=== PATIENT | female | born 1990 | race Caucasian/White ===

== ENCOUNTER 2025-09-30 12:24 | Emergency (ER) | payer OTHER, SELFPAY ==
--- NOTE | 2025-09-30 12:32 | ED.URI ---
HPI - URI/Sore Throat General Chief Complaint: Upper Respiratory Infection Stated Complaint: COUGH/SORE THROAT/LOSING VOICE/SOB Time Seen by Provider: 09/30/25 12:45 Source: patient Mode of arrival: ambulatory Limitations: no limitations History of Present Illness HPI Narrative: is a 34 year old female patient presenting to the clinic today with c/o cough, sore throat, losing voice, and shortness of breath x 3 days. She denies any fevers, chills, body aches. States does have a little chest discomfort with coughing. Coughing is nonproductive at this time. MD elicited complaint: sore throat and nasal congestion Related Data Home Medications ?Medication ?Instructions ?Recorded ?Confirmed ?Last Taken ?Type clonazepam 0.5 mg tablet mg 09/30/25 Unknown History Allergies Allergy/AdvReac Type Severity Reaction Status Date / Time amoxicillin (From Augmentin) Allergy Severe Rash Verified 09/30/25 12:39 clavulanic acid (From Allergy Severe Rash Verified 09/30/25 12:39 Augmentin) Review of Systems Review of Systems: Pertinent positives per HPI. Patient denies any fever, chills, rash, headache, visual changes, dizziness, cough, shortness of breath, chest pain, palpitations, nausea, vomiting, diarrhea, constipation, abdominal pain, or any urinary issues. PMFSH Comments At the time of my signature, I reviewed and agree with the nursing past medical, surgical, social, and family history. There is no relevant family history pertinent to the patient complaint. Exam Narrative: General: Well-developed, well nourished, in no apparent distress Head: Normocephalic, atraumatic Eyes: Pupils equally round and reactive to light bilaterally, EOM intact, sclera and conjunctive clear, no discharge, lids normal Ears: TMs intact and congested, ear canals clear, no drainage, grossly hearing normal. Nose: Nares patent, clear nasal discharge, no inflammation, no sinus tenderness. Mouth: Oral pharynx red without lesions or masses, good dentition, MMM. Postnasal drip Neck: Supple, trachea midline, no enlargement of anterior or posterior cervical nodes, no thyroid masses or goiter palpable. Cardio: Regular rate and rhythm, s1 and s2 normal, no murmur appreciated. Resp: Clear to auscultation bilaterally, no rhonchi, rales, wheezing or rubs Course Course Level of Care: Express Care Visit Vital Signs Vital signs: Vital Signs Temperature 36.9 C 09/30/25 12:45 Pulse Rate 91 09/30/25 12:45 Respiratory Rate 16 09/30/25 12:45 Blood Pressure 125/75 09/30/25 12:45 Pulse Oximetry 100 09/30/25 12:45 Temperature 36.9 C 09/30/25 12:45 Pulse Rate 91 09/30/25 12:45 Respiratory Rate 16 09/30/25 12:45 Blood Pressure 125/75 09/30/25 12:45 Pulse Oximetry 100 09/30/25 12:45 MDM MDM Narrative Medical decision making narrative: At the time of visit patient is resting comfortably on the exam table. Patient appears to be nontoxic. C/o cough, sore throat, losing voice, and shortness of breath x 3 days. She denies any fevers, chills, body aches. States does have a little chest discomfort with coughing. Coughing is nonproductive at this time. On exam patient has bilateral TMs intact and congested, clear nasal drainage, mild anterior turbinate inflammation, no sinus tenderness, oropharynx red with postnasal drip, lung sounds are clear, heart rates regular rate and rhythm. COVID, influenza, and strep test were all ordered. Labs: COVID, flu, and strep test were all negative in the clinic today. We will send strep for culture. Plan: I suspect patient has URI/pharyngitis. Supportive measures were discussed with the patient and they voiced understanding discharge instructions and agrees to treatment plan. Return precautions reviewed Differential Diagnosis Differential Diagnosis: Differential diagnostic considerations for upper respiratory infection include upper respiratory infection, croup, otitis media, sinusitis, viral infection, bronchitis, influenza, pharyngitis, strep, uvulitis. Lab Data Labs: Lab Results 09/30/25 Range/Units 12:57 POC Influenza A Ag Negative (Negative) POC Influenza B Ag Negative (Negative) POC SARS CoV-2 Ag Negative (Negative) POC Grp A Strep Screen Negative (Negative) Discharge Plan Discharge Clinical Impression: Upper respiratory infection Qualifiers: URI type: unspecified URI Qualified Code(s): J06.9 - Acute upper respiratory infection, unspecified Pharyngitis Qualifiers: Pharyngitis/tonsillitis etiology: unspecified etiology Qualified Code(s): J02.9 - Acute pharyngitis, unspecified Patient Disposition: Home Condition: Stable Instructions: Antibiotic Form, Pharyngitis (ED), Upper Respiratory Infection (ED) Additional Instructions: COVID, flu, and strep test were performed and were negative in the clinic today. We will send strep for culture. Increase fluids and stay well hydrated May take Tylenol or motrin as directed on bottle for pain/fever May use Flonase 1 spray in each nare daily May take OTC antihistamines such as Zyrtec or Claritin daily as directed on bottle May apply Vicks vapor rub to chest to open sinuses Sinus rinses for congestion Cepacol spray, cough drops, throat lozenges, warm tea with honey/lemon, gargle salt water to soothe throat BRAT diet for diarrhea Clear liquids x 24 hours then advance as tolerated for nausea/vomiting Go to the ED if you develop a worsening in your condition- high fever not controlled by Tylenol or Motrin, dehydration, weakness, lethargy, shortness of breath, or chest pain. Follow up with your PCP in 3-5 days if symptoms persist. Patient Language: Citizen Of [place] Prescriptions: No Action clonazepam 0.5 mg tablet Follow-up/Referrals: Niranjan,Kayla [Other] Time of Disposition: 12:50 Quality NIHSS Nursing Documentation ED NIHSS nursing documentation: reviewed/agree
[2025-09-30 12:45] VITALS: BP 125/75; PULSE 91; RESP 16; TEMP 36.9; O2SAT 100
[2025-09-30 12:59] LABS: EDCOVIDSCREEN Negative (Negative); EDINFLUASCREEN Negative (Negative); EDINFLUBSCREEN Negative (Negative); EDSTREPNEGPOS1 Negative (Negative)
== END 2025-09-30 13:05 | disposition home or self-care (01) ==
PROVIDERS: Emergency Provider Nurse Practitioner Family
DX: J06.9 Acute upper respiratory infection, unspecified (principal); J02.9 Acute pharyngitis, unspecified; Z20.822 Contact with and (suspected) exposure to COVID-19; F41.9 Anxiety disorder, unspecified
CPT/HCPCS: 87081; 87426; 87804; 87880; 99203; G0463

== ENCOUNTER 2025-10-01 16:43 | Emergency (ER) | payer OTHER, SELFPAY ==
[2025-10-01 16:59] VITALS: BP 112/84; PULSE 75; RESP 16; TEMP 36.9; O2SAT 100
--- NOTE | 2025-10-01 17:49 | ED.EYEPROB ---
HPI - Eye Problem General Chief complaint: Eye Problems Stated complaint: EYE REDNESS Time Seen by Provider: 10/01/25 17:40 Source: patient and RN notes reviewed Mode of arrival: ambulatory Limitations: no limitations History of Present Illness HPI Narrative: 34-year-old female presents to the [facility] complaining of left eye redness and purulent drainage. Patient said started this morning. Patient was seen yesterday for upper respiratory infection, she did not have the symptoms yesterday. Patient denies any vision changes, eye pain, headaches, nausea, vomiting, fevers, or any other symptoms. Patient says she has been exposed to pinkeye this week. Related Data Home Medications ?Medication ?Instructions ?Recorded ?Confirmed ?Last Taken ?Type clonazepam 0.5 mg tablet mg 09/30/25 Unknown History Allergies Allergy/AdvReac Type Severity Reaction Status Date / Time amoxicillin (From Augmentin) Allergy Severe Rash Verified 09/30/25 12:39 clavulanic acid (From Allergy Severe Rash Verified 09/30/25 12:39 Augmentin) Review of Systems Review of Systems: CONSTITUTIONAL: Denies fever, chills, or sweats. EYES: Denies visual changes.. Positive for redness and discharge. ENT: Denies rhinorrhea, congestion, sore throat, or otalgia. CARDIOVASCULAR: Denies chest pain, palpitations, or edema. RESPIRATORY: Denies cough or dyspnea. GASTROINTESTINAL: Denies abdominal pain, nausea, vomiting, or diarrhea. GENITOURINARY: Denies dysuria or hematuria. SKIN: Denies rash or itching. MUSCULOSKELETAL: Denies back pain, joint pain, or myalgia. NEUROLOGIC: Denies headache, numbness, or weakness. PSYCHIATRIC: Denies anxiety or depression. All other systems reviewed are negative, except as documented in HPI. PMFSH Comments At the time of my signature, I reviewed and agree with the nursing past medical, surgical, social, and family history. There is no relevant family history pertinent to the patient complaint. Exam Narrative: GENERAL: This is a well-nourished, well-developed adult, in no apparent distress. They are non ill-appearing, nontoxic appearing. HEAD: normocephalic, atraumatic. EYES: Sclera clear/white. Right Conjunctiva normal. Left conjunctiva injected with purulent drainage present. Vision is grossly intact. Extraocular movements intact. Pupils PERRLA EARS: External ears normal, Hearing grossly intact. NOSE: External nose normal THROAT: Mucous membranes moist, NECK: Neck supple CARDIOVASCULAR: Regular rate and rhythm RESPIRATORY: Respiratory rate normal, respiratory effort nonlabored, no respiratory distress SKIN: warm, Dry, intact with no suspicious lesions or rash, good texture and turgor. NEURO: awake, alert, and oriented to person, place and time. There were no obvious focal neurologic abnormalities. EXTREMITIES: No joint tenderness, effusion, or edema noted. BACK: Nontender without deformity. Course Course Level of Care: Express Care Visit Vital Signs Vital signs: Vital Signs Temperature 98.5 F 10/01/25 16:59 Pulse Rate 75 10/01/25 16:59 Respiratory Rate 16 10/01/25 16:59 Blood Pressure 112/84 10/01/25 16:59 Pulse Oximetry 100 10/01/25 16:59 Temperature 98.5 F 10/01/25 16:59 Pulse Rate 75 10/01/25 16:59 Respiratory Rate 16 10/01/25 16:59 Blood Pressure 112/84 10/01/25 16:59 Pulse Oximetry 100 10/01/25 16:59 [facility] MDM Narrative Medical decision making narrative: Appears patient has pinkeye to the left eye. Will treat with polymyxin eye drops. Discussed physical exam findings. Advised supportive measures and signs/symptoms to go to the ER. Pt is appropriate for outpt treatment and f/u. Differential Diagnosis Differential Diagnosis: Conjunctivitis, upper respiratory infection, scleritis, corneal abrasion Critical Care Time Critical Care Time Critical Care Time: No Discharge Plan Discharge Clinical Impression: Conjunctivitis Qualifiers: Conjunctivitis type: acute Acute conjunctivitis type: bacterial Laterality: left Qualified Code(s): H10.32 - Unspecified acute conjunctivitis, left eye Patient Disposition: Home Condition: Stable Instructions: Conjunctivitis (ED) Additional Instructions: Your exam today shows Conjunctivitis, You have been given a prescription for eye drops. Use the eye drops as instructed. If you are not better in two (2) days, you need to follow up with an hand i thermal cutter. Do not rub the eye or put anything else in the eye, this can cause abrasions (scratches) on the eye or lead to vision loss. Also it is important not to touch the tube or tip of drops to the eye, as this can cause further infection. Wash your hands very well before instilling the medication. Handwashing can help prevent the spread of disease. Follow up with PCP 3-5 days. Return to ER for problems Contact [facility] if you need an [employer] Systems [] Patient Language: [place] Prescriptions: New polymyxin B sulf-trimethoprim 10,000 unit- 1 mg/mL drops 1 drp LEFT EYE Q3H 7 Days Qty: 10 0RF Rx Instructions: while awake; do not exceed 6 doses in 24 hours No Action clonazepam 0.5 mg tablet Follow-up/Referrals: Niranjan,Kayla [Other] Time of Disposition: 17:46
== END 2025-10-01 17:50 | disposition home or self-care (01) ==
DX: H10.32 Unspecified acute conjunctivitis, left eye (principal); F41.9 Anxiety disorder, unspecified
CPT/HCPCS: 99213; G0463